=== PATIENT | male | born 1995 | race Caucasian/White ===

== ENCOUNTER 2018-12-09 16:48 | Emergency (ER) | payer OTHER ==
[~2018-12-09] VITALS: Ht 167.6 cm; Wt 47.8 kg
[~2018-12-09 16:48] MED LIST: HYDR-4383 PO
[2018-12-09 16:52] VITALS: BP 117/79
[2018-12-09] MEDS ORDERED: sulfamethoxazole/trimethoprim DS (800/160mg) tablet PO ONE (18:00)
[2018-12-09] MEDS ORDERED: LIDOcaine 1% w/EPI 1:200,000 injection 10mL vial IM ONE (18:00)
[2018-12-09] MEDS ORDERED: cephalexin 250mg capsule PO ONE (18:00)
[2018-12-09] MEDS ORDERED: LIDOcaine 1% W/epiNEPHrine 1:200,000 10ml vial IJ ONE (18:10)
[2018-12-09] MEDS ORDERED: CEPH-572 PO (18:29)
[2018-12-09] MEDS ORDERED: SULF1TAB49 PO (18:29)
--- NOTE | 2018-12-09 18:30 | NUR ---
wound bandaged by pa after treatment.
== END 2018-12-09 18:37 | disposition home or self-care (01) ==
LOC: ER 16:48
DX: L02.211 Cutaneous abscess of abdominal wall (principal); J45.909 Unspecified asthma, uncomplicated; Z86.14 Personal history of Methicillin resistant Staphylococcus aureus infection; Z88.0 Allergy status to penicillin; Z79.899 Other long term (current) drug therapy
CPT/HCPCS: 10060; 99283

== ENCOUNTER 2019-08-20 13:15 | Emergency (ER) | payer MEDICAID, OTHER ==
[~2019-08-20] VITALS: Ht 172.7 cm; Wt 70.0 kg
[2019-08-20 14:21] VITALS: BP 125/88
--- NOTE | 2019-08-20 14:21 | NUR ---
Pt. also reports "staph infections" that he needs antibiotic cream for
[2019-08-20 15:18] LABS: CLARITY,URINE CLEAR (Clear); COLOR,URINE YELLOW (Yellow); GLUCOSE, URINE NEGATIVE (Neg); KETONES,URINE NEGATIVE (Neg); LEUKOCYTE ESTERASE ,URINE NEGATIVE (Neg); NITRITES, URINE NEGATIVE (Neg); OCCULT BLOOD,URINE TRACE-INTACT (Neg); PH,URINE 6.5 (4.8-8.0); PROTEIN,URINE NEGATIVE (Neg); UROBILINOGEN,URINE 0.2 E.U/dL (0.2-1.0)
[2019-08-20 15:28] LABS: UA COLLECTION TYPE CLN CATCH MIDSTREAM
[2019-08-20 15:29] LABS: BACTERIA,URINE FEW /HPF (Neg); RBC,URINE 0-2 /HPF (0-2); SQUAMOUS EPITHELIAL CELL,UR FEW /LPF (FEW); WBC,URINE 0-4 /HPF (0-4)
== END 2019-08-20 15:51 | disposition home or self-care (01) ==
LOC: ER 13:15
DX: N50.82 Scrotal pain (principal); J45.909 Unspecified asthma, uncomplicated; R30.9 Painful micturition, unspecified; N50.811 Right testicular pain; Z86.14 Personal history of Methicillin resistant Staphylococcus aureus infection; Z88.0 Allergy status to penicillin; Z79.899 Other long term (current) drug therapy
CPT/HCPCS: 76870; 81001; 93976; 99284; 99285

== ENCOUNTER 2020-02-12 15:09 | Emergency (ER) | payer MEDICAID | END 2020-02-12 17:50 | disposition left against medical advice (07) | LOC: ER 15:09 | DX: R39.89 Other symptoms and signs involving the genitourinary system (principal); Z53.21 Procedure and treatment not carried out due to patient leaving prior to being seen by health care provider ==

== ENCOUNTER 2020-04-26 13:44 | Emergency (ER) | payer SELFPAY ==
[~2020-04-26] VITALS: Ht 167.6 cm; Wt 65.9 kg
[2020-04-26] MEDS ORDERED: mag hydrox/Alum hydrox/simeth 30ml oral suspension PO ONE (14:10)
[2020-04-26] MEDS ORDERED: LIDOcaine Viscous 15ml cup MM ONE (14:10)
[2020-04-26] MEDS ORDERED: normal saline 1000ML IV soln IVB ONE (14:10)
[2020-04-26 15:28] VITALS: BP 118/80
== END 2020-04-26 15:30 | disposition home or self-care (01) ==
LOC: ER 13:44
DX: A08.4 Viral intestinal infection, unspecified (principal); J45.909 Unspecified asthma, uncomplicated; Z86.14 Personal history of Methicillin resistant Staphylococcus aureus infection; Z88.0 Allergy status to penicillin; Z79.899 Other long term (current) drug therapy
CPT/HCPCS: 96360; 99283; J7030

== ENCOUNTER 2020-05-07 15:22 | Emergency (ER) | payer MEDICAID ==
[~2020-05-07] VITALS: Ht 167.6 cm; Wt 65.9 kg
[2020-05-07] MEDS ORDERED: TETanus/Pertussis (Acell)/Diphther VAC/PF (Tdap-Adult) 0.5ml syringe IMVAC ONE (16:30)
== END 2020-05-07 17:14 | disposition home or self-care (01) ==
LOC: ER 15:24
DX: S61.210A Laceration without foreign body of right index finger without damage to nail, initial encounter (principal); Z88.0 Allergy status to penicillin; Z79.899 Other long term (current) drug therapy; Z20.3 Contact with and (suspected) exposure to rabies; X58.XXXA Exposure to other specified factors, initial encounter; Y93.89 Activity, other specified; Y92.89 Other specified places as the place of occurrence of the external cause; Y99.8 Other external cause status
CPT/HCPCS: 12001; 90471; 90715; 99283